=== PATIENT | male | born 1955 | race Caucasian/White ===

== ENCOUNTER 2018-03-29 05:17 | Inpatient (IN) | payer OTHER ==
[~2018-03-29] VITALS: Ht 175.3 cm; Wt 95.4 kg
[2018-03-29] MEDS ORDERED: acetaminophen 325mg tablet PO STA (05:31)
[2018-03-29] MEDS ORDERED: normal saline 1000ML IV soln IV ONE (05:35)
[2018-03-29] MEDS ORDERED: piperacillin/tazo 3.375gm/50ml 50 ML IV ONE (05:35)
[2018-03-29] MEDS ORDERED: LIDOcaine 1.5% w/epinephrine 1:200,000 5ml ampul IJ ONE (05:35)
[2018-03-29] MEDS ORDERED: vancomycin/NS 1 GM ADD-VANTAGE 250 ML IV ONE (05:35)
[2018-03-29] MEDS ORDERED: TETanus/Pertussis (Acell)/Diphther VAC/PF (Tdap-Adult) 0.5ml syringe IM ONE (05:35)
[2018-03-29] MEDS ORDERED: METF500T PO (06:05)
[2018-03-29] MEDS ORDERED: ondansetron/PF 4mg/2ml inj IV ONE (06:15)
[2018-03-29] MEDS ORDERED: morphine 4 MG/ML inj SYRINge IV ONE (06:15)
[2018-03-29 06:22] LABS: PARTIAL THROMBOPLASTIN TIME 28 SECONDS (22-32); PROTHROMBIN TIME 10.2 SECONDS (9.0-12.0)
[2018-03-29 06:25] LABS: ALANINE AMINOTRANSFERASE 23 U/L (12-78); ALBUMIN 2.9 G/DL (3.4-5.0); ALBUMIN/GLOBULIN RATIO 0.6 (1.1-1.5); ALKALINE PHOSPHATASE 73 IU/L (46-116); ANION GAP 10 (8-16); ASPARTATE AMINO TRANSFERASE 8 U/L (10-37); BILIRUBIN,TOTAL 0.8 MG/DL (0.1-1.0); BLOOD UREA NITROGEN 13 MG/DL (7-18); BUN/CREATININE RATIO 15.5 (5.4-32.0); CALCIUM 8.3 MG/DL (8.5-10.1); CHLORIDE 102 MMOL/L (99-107); CREATININE 0.84 MG/DL (0.60-1.10); GLUCOSE 219 MG/DL (70-104); POTASSIUM 4.1 MMOL/L (3.5-5.1); SODIUM 137 MMOL/L (135-145); TOTAL CARBON DIOXIDE 24.9 MMOL/L (24-32); TOTAL PROTEIN 7.5 G/DL (6.4-8.2); eGFR > 90 ML/MIN
[2018-03-29 06:27] LABS: BASOPHILS # (AUTO) 0.1 X10'3 (0-0.2); BASOPHILS % (AUTO) 0.9 % (0-1); EOSINOPHILS # (AUTO) 0.1 X10'3 (0-0.9); EOSINOPHILS % (AUTO) 1.2 % (0-6); HEMATOCRIT 42.1 % (42.0-52.0); HEMOGLOBIN 14.4 g/dl (14.0-17.9); LYMPHOCYTES % (AUTO) 18.4 % (21-51); MEAN CORPUSCULAR HEMOGLOBIN 32.5 PG (27.0-31.0); MEAN CORPUSCULAR HGB CONC 34.3 % (33.0-36.5); MEAN CORPUSCULAR VOLUME 94.8 FL (78-98); MEAN PLATELET VOLUME 7.9 FL (7.4-10.4); MONOCYTES # (AUTO) 0.8 X10'3 (0-0.9); MONOCYTES % (AUTO) 7.6 % (2-12); NEUTROPHILS # (AUTO) 8.1 X10'3 (1.8-7.7); NEUTROPHILS % (AUTO) 71.9 % (42-75); PLATELET COUNT 384 X10'3 (140-440); RED BLOOD COUNT 4.44 X10'6 (4.70-6.10); RED CELL DISTRIBUTION WIDTH 12.3 % (11.5-14.5); WHITE BLOOD COUNT 11.1 X10'3 (4.5-11.0)
[2018-03-29] MEDS ORDERED: levoFLOXACIN-Levaquin 750MG/D5 150 ML IV STA (07:38)
[2018-03-29] MEDS: normal saline 1000ml 1,000 ML IV SCH ×2 (07:38→14:24)
[2018-03-29] MEDS ORDERED: ondansetron/PF 4mg/2ml inj IV PRN (07:40)
[2018-03-29] MEDS ORDERED: potassium Cl 40MEQ/NS 500ml 500 ML IV PRN ×2 (07:40)
[2018-03-29] MEDS ORDERED: magnesium 4gm in 100ml NS 100 ML IV PRN (07:40)
[2018-03-29] MEDS ORDERED: MESSAGE TO PHARMACY PO ONE (07:40)
[2018-03-29] MEDS ORDERED: dextrose 50%-water 50ml dispensing syringe IV PRN ×2 (07:40)
[2018-03-29] MEDS ORDERED: potassium Cl 20 mEq SR tablet PO PRN ×2 (07:40)
[2018-03-29] MEDS ORDERED: morphine 2 MG/ML inj. syringe IV PRN (07:40)
[2018-03-29] MEDS ORDERED: acetaminophen 325mg tablet PO PRN ×2 (07:40)
[2018-03-29] MEDS ORDERED: magnesium 1gm/100ml D5W IVPB 100 ML IV PRN (07:40)
[2018-03-29] MEDS ORDERED: magnesium hydroxide 30ml (MOM) UD suspension PO PRN (07:40)
[2018-03-29] MEDS ORDERED: glucagon, human recombinant 1mg kit SUBCUT PRN (07:40)
[2018-03-29] MEDS ORDERED: dextrose ORAL solution 15 GM/59 ML bottle PO PRN ×2 (07:40)
[2018-03-29] MEDS ORDERED: mag hydrox/Alum hydrox/simeth 30ml oral suspension PO PRN (07:40)
[2018-03-29] MEDS: K and/or MAG REPLACEMENT MC SCH (07:47)
[2018-03-29 08:05] LABS: HEMOGLOBIN A1C 9.2 % (4.5-6.2)
[2018-03-29] MEDS: enoxaparin 40mg/0.4ml syringe SQ SCH (08:17)
[2018-03-29 09:45] VITALS: BP 147/91
[2018-03-29] MEDS: insulin Lispro (HumaLOG) vial - multi-dose SQ SCH ×3 (10:09→18:57)
[2018-03-29] MEDS: vancomycin inj 1,250 MG in normal saline 250ml IV soln 250 ML IV SCH ×2 (14:25→22:52)
[2018-03-29] MEDS: lisinopril 10 MG tablet PO SCH (16:53)
[2018-03-29] MEDS: nicotine 21mg patch - 24 hr TD SCH (16:54)
[2018-03-29 16:55] VITALS: BP 154/74
[2018-03-29 18:00] VITALS: BP 138/72
[2018-03-29] MEDS: morphine 2 MG/ML inj. syringe IV PRN (19:11)
[2018-03-29] MEDS: insulin glargine (Lantus) pen - multi-dose SQ SCH (21:43)
[2018-03-29] MEDS: lactobacillus rhamnosus 10,000 MMU CELLS/CAPSULE PO SCH (21:45)
[2018-03-29 22:00] VITALS: BP 114/64
[2018-03-30] MEDS: normal saline 1000ml 1,000 ML IV SCH ×2 (03:38→13:40)
[2018-03-30 05:42] LABS: BASOPHILS % (AUTO) 0.5 % (0-1); EOSINOPHILS # (AUTO) 0.2 X10'3 (0-0.9); EOSINOPHILS % (AUTO) 2.2 % (0-6); HEMATOCRIT 36.5 % (42.0-52.0); HEMOGLOBIN 12.6 g/dl (14.0-17.9); LYMPHOCYTES % (AUTO) 22.9 % (21-51); MEAN CORPUSCULAR HEMOGLOBIN 32.4 PG (27.0-31.0); MEAN CORPUSCULAR HGB CONC 34.6 % (33.0-36.5); MEAN CORPUSCULAR VOLUME 93.6 FL (78-98); MEAN PLATELET VOLUME 7.5 FL (7.4-10.4); MONOCYTES # (AUTO) 0.7 X10'3 (0-0.9); MONOCYTES % (AUTO) 8.1 % (2-12); NEUTROPHILS # (AUTO) 5.7 X10'3 (1.8-7.7); NEUTROPHILS % (AUTO) 66.3 % (42-75); PLATELET COUNT 346 X10'3 (140-440); RED CELL DISTRIBUTION WIDTH 12.9 % (11.5-14.5); WHITE BLOOD COUNT 8.6 X10'3 (4.5-11.0)
[2018-03-30 06:00] VITALS: BP 123/72
[2018-03-30] MEDS: vancomycin inj 1,250 MG in normal saline 250ml IV soln 250 ML IV SCH ×2 (06:01→13:40)
[2018-03-30 06:09] LABS: ALANINE AMINOTRANSFERASE 33 U/L (12-78); ALBUMIN 2.2 G/DL (3.4-5.0); ALBUMIN/GLOBULIN RATIO 0.6 (1.1-1.5); ALKALINE PHOSPHATASE 64 IU/L (46-116); ANION GAP 8 (8-16); ASPARTATE AMINO TRANSFERASE 19 U/L (10-37); BILIRUBIN,TOTAL 0.8 MG/DL (0.1-1.0); BLOOD UREA NITROGEN 9 MG/DL (7-18); BUN/CREATININE RATIO 12.3 (5.4-32.0); CALCIUM 8.3 MG/DL (8.5-10.1); CHLORIDE 104 MMOL/L (99-107); CHOL/HDL RATIO 4.2 (0.00-4.99); CHOLESTEROL 139 MG/DL (0-200); CREATININE 0.73 MG/DL (0.60-1.10); GLUCOSE 155 MG/DL (70-104); HDL CHOLESTEROL 33 MG/DL (35-60); LDL CHOLESTEROL 98 MG/DL (50-100); MAGNESIUM 1.7 MG/DL (1.5-2.4); SODIUM 137 MMOL/L (135-145); TOTAL CARBON DIOXIDE 25.2 MMOL/L (24-32); TOTAL PROTEIN 6.2 G/DL (6.4-8.2); TRIGLYCERIDES 70 MG/DL (20-135); eGFR > 90 ML/MIN
[2018-03-30] MEDS: atorvastatin 20mg tablet PO SCH (07:25)
[2018-03-30] MEDS: lactobacillus rhamnosus 10,000 MMU CELLS/CAPSULE PO SCH ×2 (07:25→20:05)
[2018-03-30] MEDS: lisinopril 10 MG tablet PO SCH (07:25)
[2018-03-30] MEDS: enoxaparin 40mg/0.4ml syringe SQ SCH (07:26)
[2018-03-30] MEDS: nicotine 21mg patch - 24 hr TD SCH (07:27)
[2018-03-30] MEDS: K and/or MAG REPLACEMENT MC SCH (08:00)
[2018-03-30] MEDS: morphine 2 MG/ML inj. syringe IV PRN (08:44)
[2018-03-30] MEDS: insulin Lispro (HumaLOG) vial - multi-dose SQ SCH ×3 (08:53→20:04)
[2018-03-30] MEDS ORDERED: HYDROcodone/acetaminophen 10/325mg tab PO PRN (09:45)
[2018-03-30 10:00] VITALS: BP 128/62
[2018-03-30] MEDS: levoFLOXACIN 750MG TABLET PO SCH (11:12)
[2018-03-30] MEDS: HYDROcodone/acetaminophen 10/325mg tab PO PRN ×2 (11:12→17:05)
[2018-03-30] MEDS ORDERED: VANCOMYCIN LEVEL IV NR (13:30)
[2018-03-30 18:00] VITALS: BP 150/81
[2018-03-30 22:00] VITALS: BP 144/77
[2018-03-30] MEDS: insulin glargine (Lantus) pen - multi-dose SQ SCH (22:07)
[2018-03-31] MEDS: normal saline 1000ml 1,000 ML IV SCH (03:17)
[2018-03-31 05:10] LABS: BASOPHILS # (AUTO) 0.1 X10'3 (0-0.2); EOSINOPHILS # (AUTO) 0.2 X10'3 (0-0.9); EOSINOPHILS % (AUTO) 3.3 % (0-6); HEMATOCRIT 38.1 % (42.0-52.0); HEMOGLOBIN 13.1 g/dl (14.0-17.9); LYMPHOCYTES # (AUTO) 2.2 X10'3 (1.1-4.8); LYMPHOCYTES % (AUTO) 30.4 % (21-51); MEAN CORPUSCULAR HEMOGLOBIN 32.3 PG (27.0-31.0); MEAN CORPUSCULAR HGB CONC 34.4 % (33.0-36.5); MEAN PLATELET VOLUME 7.3 FL (7.4-10.4); MONOCYTES # (AUTO) 0.7 X10'3 (0-0.9); MONOCYTES % (AUTO) 8.9 % (2-12); NEUTROPHILS # (AUTO) 4.2 X10'3 (1.8-7.7); NEUTROPHILS % (AUTO) 56.4 % (42-75); PLATELET COUNT 364 X10'3 (140-440); RED BLOOD COUNT 4.05 X10'6 (4.70-6.10); RED CELL DISTRIBUTION WIDTH 12.6 % (11.5-14.5); WHITE BLOOD COUNT 7.4 X10'3 (4.5-11.0)
[2018-03-31 05:40] LABS: ALANINE AMINOTRANSFERASE 34 U/L (12-78); ALBUMIN 2.2 G/DL (3.4-5.0); ALBUMIN/GLOBULIN RATIO 0.6 (1.1-1.5); ALKALINE PHOSPHATASE 58 IU/L (46-116); ANION GAP 7 (8-16); ASPARTATE AMINO TRANSFERASE 12 U/L (10-37); BILIRUBIN,TOTAL 0.4 MG/DL (0.1-1.0); BLOOD UREA NITROGEN 15 MG/DL (7-18); BUN/CREATININE RATIO 15.6 (5.4-32.0); CALCIUM 8.6 MG/DL (8.5-10.1); CHLORIDE 105 MMOL/L (99-107); CREATININE 0.96 MG/DL (0.60-1.10); GLUCOSE 157 MG/DL (70-104); MAGNESIUM 1.7 MG/DL (1.5-2.4); POTASSIUM 4.7 MMOL/L (3.5-5.1); SODIUM 140 MMOL/L (135-145); TOTAL CARBON DIOXIDE 28.2 MMOL/L (24-32); TOTAL PROTEIN 6.2 G/DL (6.4-8.2); eGFR 79 ML/MIN
[2018-03-31 06:00] VITALS: BP 139/70
[2018-03-31] MEDS: K and/or MAG REPLACEMENT MC SCH (06:33)
[2018-03-31] MEDS: enoxaparin 40mg/0.4ml syringe SQ SCH (07:10)
[2018-03-31] MEDS: lactobacillus rhamnosus 10,000 MMU CELLS/CAPSULE PO SCH ×2 (07:10→19:17)
[2018-03-31] MEDS: atorvastatin 20mg tablet PO SCH (07:10)
[2018-03-31] MEDS: lisinopril 10 MG tablet PO SCH (07:10)
[2018-03-31] MEDS: nicotine 21mg patch - 24 hr TD SCH (07:11)
[2018-03-31] MEDS: HYDROcodone/acetaminophen 10/325mg tab PO PRN ×2 (07:11→15:17)
[2018-03-31] MEDS: insulin Lispro (HumaLOG) vial - multi-dose SQ SCH ×3 (08:24→19:17)
[2018-03-31 10:24] VITALS: BP 147/73
[2018-03-31] MEDS: levoFLOXACIN 750MG TABLET PO SCH (11:02)
[2018-03-31 18:00] VITALS: BP 131/79
[2018-03-31] MEDS ORDERED: VANCOMYCIN LEVEL IV NR (21:30)
[2018-03-31] MEDS: insulin glargine (Lantus) pen - multi-dose SQ SCH (21:35)
[2018-03-31] MEDS: clindamycin 300mg/D5W 50mL 50 ML IV SCH (21:37)
[2018-03-31 22:00] VITALS: BP 132/83
[2018-04-01] MEDS: clindamycin 300mg/D5W 50mL 50 ML IV SCH ×2 (02:39→07:10)
[2018-04-01 05:59] LABS: BASOPHILS # (AUTO) 0.1 X10'3 (0-0.2); BASOPHILS % (AUTO) 0.8 % (0-1); EOSINOPHILS # (AUTO) 0.3 X10'3 (0-0.9); EOSINOPHILS % (AUTO) 3.3 % (0-6); HEMATOCRIT 39.8 % (42.0-52.0); HEMOGLOBIN 13.6 g/dl (14.0-17.9); LYMPHOCYTES # (AUTO) 2.1 X10'3 (1.1-4.8); LYMPHOCYTES % (AUTO) 25.3 % (21-51); MEAN CORPUSCULAR HGB CONC 34.3 % (33.0-36.5); MEAN CORPUSCULAR VOLUME 93.1 FL (78-98); MEAN PLATELET VOLUME 7.3 FL (7.4-10.4); MONOCYTES # (AUTO) 0.5 X10'3 (0-0.9); MONOCYTES % (AUTO) 6.6 % (2-12); NEUTROPHILS # (AUTO) 5.2 X10'3 (1.8-7.7); PLATELET COUNT 397 X10'3 (140-440); RED BLOOD COUNT 4.27 X10'6 (4.70-6.10); RED CELL DISTRIBUTION WIDTH 12.6 % (11.5-14.5); WHITE BLOOD COUNT 8.2 X10'3 (4.5-11.0)
[2018-04-01 06:21] LABS: ALANINE AMINOTRANSFERASE 27 U/L (12-78); ALBUMIN 2.4 G/DL (3.4-5.0); ALBUMIN/GLOBULIN RATIO 0.6 (1.1-1.5); ALKALINE PHOSPHATASE 61 IU/L (46-116); ANION GAP 6 (8-16); ASPARTATE AMINO TRANSFERASE 18 U/L (10-37); BILIRUBIN,TOTAL 0.6 MG/DL (0.1-1.0); BLOOD UREA NITROGEN 16 MG/DL (7-18); CALCIUM 8.6 MG/DL (8.5-10.1); CHLORIDE 102 MMOL/L (99-107); CREATININE 0.89 MG/DL (0.60-1.10); GLUCOSE 178 MG/DL (70-104); MAGNESIUM 1.7 MG/DL (1.5-2.4); POTASSIUM 4.5 MMOL/L (3.5-5.1); SODIUM 137 MMOL/L (135-145); TOTAL CARBON DIOXIDE 28.6 MMOL/L (24-32); TOTAL PROTEIN 6.7 G/DL (6.4-8.2); eGFR 86 ML/MIN
[2018-04-01 07:00] VITALS: BP 153/84
[2018-04-01] MEDS: lisinopril 10 MG tablet PO SCH (07:10)
[2018-04-01] MEDS: lactobacillus rhamnosus 10,000 MMU CELLS/CAPSULE PO SCH (07:10)
[2018-04-01] MEDS: atorvastatin 20mg tablet PO SCH (07:10)
[2018-04-01] MEDS: enoxaparin 40mg/0.4ml syringe SQ SCH (07:11)
[2018-04-01] MEDS: nicotine 21mg patch - 24 hr TD SCH (07:11)
[2018-04-01] MEDS: K and/or MAG REPLACEMENT MC SCH (07:19)
[2018-04-01] MEDS: insulin Lispro (HumaLOG) vial - multi-dose SQ SCH (08:29)
[2018-04-01 10:18] VITALS: BP 139/72
[2018-04-01] MEDS ORDERED: NICO-687 TD (11:16)
[2018-04-01] MEDS ORDERED: CLIN-5 PO (11:16)
[2018-04-01] MEDS ORDERED: NICO-731 TD (11:16)
[2018-04-01] MEDS ORDERED: METF500T PO (11:16)
[2018-04-01] MEDS ORDERED: BLOO-1084 (11:16)
[2018-04-01] MEDS ORDERED: ATOR20TA66 PO (11:16)
[2018-04-01] MEDS ORDERED: HYDR-3972 PO (11:16)
[2018-04-01] MEDS ORDERED: NICO1PAT41 TOP (11:16)
[2018-04-01] MEDS ORDERED: LISI10TA4 PO (11:16)
[2018-04-01] MEDS ORDERED: BUDE10.22 INH (12:31)
== END 2018-04-01 12:45 | disposition home or self-care (01) | DRG 603 ==
LOC: ER 05:18 → ED HOLD 07:38 → ORTHO 4S 09:35
PROVIDERS: ADMIT Family Medicine; ATTEND Family Medicine
PROC: 0Y990ZX Drainage of Right Lower Extremity, Open Approach, Diagnostic (ICD-10-PCS; principal; 2018-03-29)
DX: L03.115 Cellulitis of right lower limb (principal); E11.65 Type 2 diabetes mellitus with hyperglycemia; L02.415 Cutaneous abscess of right lower limb; E78.00 Pure hypercholesterolemia, unspecified; X18.XXXA Contact with other hot metals, initial encounter; S80.922A Unspecified superficial injury of left lower leg, initial encounter; E78.5 Hyperlipidemia, unspecified; F17.210 Nicotine dependence, cigarettes, uncomplicated; I10 Essential (primary) hypertension; Z79.84 Long term (current) use of oral hypoglycemic drugs; Z79.899 Other long term (current) drug therapy; Z83.3 Family history of diabetes mellitus; Z90.49 Acquired absence of other specified parts of digestive tract; Y93.89 Activity, other specified; Y92.89 Other specified places as the place of occurrence of the external cause; Y99.8 Other external cause status; Z71.6 Tobacco abuse counseling
CPT/HCPCS: 10061; 36415; 71045; 80053; 80061; 80202; 82948; 83036; 83605; 83735; 84145; 85025; 85610; 85730; 87040; 87070; 87077; 87186; 90471; 90715; 93925; 93970; 96368; 96372; 96375; 99285; A4649; A6212; A6213; A6258; A6449; J1650; J1815; J1956; J2270; J2405; J2543; J3370; J3490; J7030; X5958